=== PATIENT | male | born 1975 | race Native Hawaiian/Other Pacific Islander ===

== ENCOUNTER 2016-09-27 11:25 | Emergency (ER) | payer OTHER ==
[~2016-09-27] VITALS: Ht 180.3 cm; Wt 72.6 kg
[2016-09-27 11:41] LABS: PLATELET COUNT 373 K/uL (142-355)
[2016-09-27 11:50] LABS: POTASSIUM 3.6 mmol/L (3.6-5.2); SODIUM 136 mmol/L (136-145)
[2016-09-27 11:56] LABS: PARTIAL THROMBOPLASTIN TIME 33.4 SECONDS (24.5-33.6)
[2016-09-27 14:20] VITALS: BP 110/85; TEMP 98.5
== END 2016-09-27 14:20 | disposition home or self-care (01) ==
LOC: ED 11:25
PROVIDERS: Emergency Medicine
DX: R56.9 Unspecified convulsions (principal); Z87.898 Personal history of other specified conditions; Z98.890 Other specified postprocedural states; R41.0 Disorientation, unspecified
CPT/HCPCS: 80053; 80320; 80329; 82550; 84484; 85027; 85610; 85730; 96361; 96374; 99284; J2060

== ENCOUNTER → 2017-06-15 17:31 | Outpatient (CLI) | payer OTHER | END | disposition home or self-care (01) | LOC: AMB 17:31 | DX: R56.9 Unspecified convulsions (principal) ==

== ENCOUNTER 2017-12-06 12:02 | Emergency (ER) | payer OTHER ==
[~2017-12-06] VITALS: Ht 180.3 cm; Wt 68.0 kg
[2017-12-06 12:14] VITALS: TEMP 98
[2017-12-06 13:40] VITALS: BP 132/84
== END 2017-12-06 13:40 | disposition home or self-care (01) ==
LOC: ED 12:02
DX: M75.101 Unspecified rotator cuff tear or rupture of right shoulder, not specified as traumatic (principal)
CPT/HCPCS: 99282